=== PATIENT | female | born 1940 | race Caucasian/White ===

== ENCOUNTER 2017-01-12 06:01 | Emergency (ER) | payer MEDICARE, OTHER ==
[~2017-01-12 06:01] MED LIST: ALEVE220 MG PO; ASAB PO; BACDS PO; FLONASE NAS; FRESHKOTE OPH; GENTEAL0.3 % OP; HALF81 PO; KLOR-CON M1010 MEQ PO; LEVAQUIN750 MG PO; LOTENSIN HCT1 TA1 PO; MAG CITRATE PO; MAGNESIUM CITRATE PO/LIQ; MIRALAXPKT PO; MUCINEX DM1 TAB PO; OMEPRAZOLE PO; PRILO PO; SPIRIVA INH; SYMBICORT 160/41 INH INH; TESS PO; VENTOLIN HFA INH; Z-PAK PO
[2017-01-12 07:41] LABS: BASOPHILS 0.3 %; BASOPHILS ABSOLUTE 0.02 10/3/uL (0.0-0.16); EOSINOPHILS 0.7 %; EOSINOPHILS ABSOLUTE 0.05 10/3/uL (0.0-0.53); IMMATURE GRANULOCYTES 0.3 %; IMMATURE GRANULOCYTES ABSOLUTE 0.02 10/3/uL (0.0-0.11); LYMPHOCYTES 12.3 %; LYMPHOCYTES ABSOLUTE 0.92 10/3/uL (0.67-4.30); MEAN PLATELET VOLUME 10.5 fL (9.2-13.0); MONOCYTES 5.3 %; NEUTROPHILS 81.1 %; RBC DISTRIBUTION WIDTH 14.2 % (12.0-16.0); WHITE BLOOD CELLS 7.5 10/3/uL (4.5-10.5)
[2017-01-12 07:42] LABS: HEMATOCRIT 45.5 % (36.0-48.0); HEMOGLOBIN 15.1 g/dL (12.0-16.0); MANUAL DIFF NO %; MEAN CORPUS HGB CONC 33.2 g/dL (32.0-36.0); MEAN CORPUSCULAR HEMOGLOB 31.1 pg (26.0-34.0); MEAN CORPUSCULAR VOLUME 93.8 fL (80-100); PLATELET COUNT 234 10/3/uL (150-400); RED CELL COUNT 4.85 10/6/uL (4.0-5.6)
[2017-01-12 07:56] LABS: CALCIUM, SERUM 9.3 MG/DL (8.5-10.4); CHLORIDE, SERUM 108 MMOL/L (96-112); CO2 (CARBON DIOXIDE) 27 MMOL/L (24-34); CREATININE 0.69 MG/DL (0.55-1.02); GFR AFRICAN AMERICAN 97 ML/MIN (>=60); GFR NON AFRICAN AMERICAN 83 ML/MIN (>=60); GLUCOSE, SERUM 94 MG/DL (60-99); SGOT(AST) 11 U/L (5-40); SGPT(ALT) 14 U/L (5-65); SODIUM, SERUM 141 MMOL/L (135-148); TOTAL BILIRUBIN 0.4 MG/DL (0-1.2); TOTAL PROTEIN 6.9 G/DL (6.0-8.5)
[2017-01-12 07:57] LABS: A/G RATIO 1.3 (0.7-1.9); ALBUMIN 3.9 G/DL (3.5-5.0); ALKALINE PHOSPHATASE 102 U/L (45-117); BUN (BLOOD UREA NITROGEN) 23 MG/DL (6-23); POTASSIUM, SERUM 3.7 MMOL/L (3.5-5.3)
[2017-01-12 08:11] LABS: ASCORBIC ACID (UR NOT ORDER) NEG (NEG); BILIRUBIN, URINE NEGATIVE (NEG); ER URINALYSIS TAT 0 Hrs 07 Mins; KETONE, URINE NEGATIVE (NEG); LEUKOCYTE ESTERASE(NOT OR NEG (NEG); NITRITE (URINE) NEG (NEG); WBC (NOT ORDERED) (RFLEX) 4 (0-5)
[2017-01-12 08:26] LABS: PROTIME (NOT ORD) 13.2 SEC (12.0-14.5)
[2017-01-12 08:27] LABS: PARTIAL THROMBO TIME 29.6 SEC (22.5-37.2)
[2017-01-12 08:33] LABS: TROPONIN I <0.02 NG/ML (<0.05)
== END 2017-01-12 10:49 | disposition home or self-care (01) ==
LOC: ER 06:01
PROVIDERS: Physician Assistant
DX: R42 Dizziness and giddiness (principal); J44.9 Chronic obstructive pulmonary disease, unspecified; D64.9 Anemia, unspecified; G35 Multiple sclerosis; H46.9 Unspecified optic neuritis; Z88.0 Allergy status to penicillin; Z88.2 Allergy status to sulfonamides; Z88.5 Allergy status to narcotic agent; Z88.1 Allergy status to other antibiotic agents; Z88.8 Allergy status to other drugs, medicaments and biological substances; Z79.899 Other long term (current) drug therapy
CPT/HCPCS: 70450; 71010; 80053; 81001; 84484; 85025; 85610; 85730; 93005; 99285